=== PATIENT | female | born 1980 | race Two or more races ===

== ENCOUNTER 2020-07-11 22:31 | Emergency (ER) | payer OTHER ==
[~2020-07-11] VITALS: Ht 170.2 cm; Wt 136.1 kg
[~2020-07-11 22:31] MED LIST: BENTYL10 MG/ML; CELEXA10 MG PO; DEPAKOTE ER500 MG PO; IMODIUM A-D2 M1 PO; LEVSIN/SL0.125 MG SL; LEXAPRO20 MG PO; LITHIUM CARBON300 M1 PO; PROTONIX40 MG PO; PROZAC20 MG; RISPERDAL3 MG PO; SEROQUEL XR300 MG; SYNTHROID50 MCG
[2020-07-11] MEDS ORDERED: PAXIL CR25 MG PO (22:44)
[2020-07-11] MEDS ORDERED: CLONAZEPAM1 MG PO (22:44)
[2020-07-11] MEDS ORDERED: VITAMIN D31250 MCG PO (22:45)
[2020-07-11] MEDS ORDERED: RESTORIL30 MG PO (22:45)
[2020-07-11] MEDS ORDERED: VITAMIN B-125000 MCG SL (22:45)
[2020-07-12] MEDS ORDERED: ZEBUTAL 50-3251 EACH PO (05:58)
== END 2020-07-12 06:05 | disposition home or self-care (01) ==
LOC: ER 22:31
DX: G43.809 Other migraine, not intractable, without status migrainosus (principal); G44.89 Other headache syndrome